=== PATIENT | male | born 1955 | race Caucasian/White ===

== ENCOUNTER 2024-05-11 09:12 | Day surgery (SDC) | payer MEDICARE, OTHER ==
[~2024-05-11 09:12] MED LIST: Sodium Chloride 0.9% 10 ML Syringe FLUSH PRN; Sodium Chloride 0.9% 10 ML Syringe FLUSH SCH
[2024-05-11] MEDS: Lactated Ringers 1,000 ML IV SCH (09:40)
[2024-05-11] MEDS ORDERED: Midazolam 1 MG/ML 2 ML SDV ONE (10:30)
[2024-05-11] MEDS ORDERED: Propofol 200 MG/20 ML SDV ONE ×3 (10:30)
[2024-05-11] MEDS ORDERED: Lidocaine 1% 4 ML ONE (10:32)
== END 2024-05-11 12:05 | disposition home or self-care (01) ==
LOC: JD.SDS 09:12
PROVIDERS: ATTEND Surgery
DX: Z12.11 Encounter for screening for malignant neoplasm of colon (principal); Z86.010 Personal history of colon polyps; Z88.8 Allergy status to other drugs, medicaments and biological substances; Z79.82 Long term (current) use of aspirin; Z79.899 Other long term (current) drug therapy
CPT/HCPCS: 00812; 99213; G0105; J2250; J2704; J3490; J7120